=== PATIENT | male | born 1990 | race Caucasian/White ===

== ENCOUNTER 2020-01-08 18:51 | Emergency (ER) | payer BC, OTHER ==
[2020-01-08] MEDS ORDERED: HYDROmorphone 1 MG/ML Syringe IVPUSH STA (19:50)
[2020-01-08] MEDS ORDERED: Ondansetron 4 MG/2 ML SDV IVPUSH ONE (19:50)
--- NOTE | 2020-01-08 19:56 | EDM.PDOC ---
ED HPI GENERAL MEDICAL PROBLEM - General Chief Complaint: Abdominal Pain Stated Complaint: SIDE PAIN Time Seen by Provider: 01/08/20 19:28 Source of Information: Reports: Patient History Limitations: Reports: No Limitations - History of Present Illness INITIAL COMMENTS - FREE TEXT/NARRATIVE: Mr. Liriano is a very pleasant 29-year-old man with no chronic medical issues and no prior surgeries, who now presents to the ED stating that he developed sharp lower abdominal pain yesterday, 01/07/2020. The pain comes and goes, typically lasting about 1.5 minutes, recurring about every 5 minutes. When present, he states that it radiates from his right lower quadrant down to his right groin, then across his lower abdomen to the left. His pain is made worse if he eats or drinks, or if he lies in a prone position. He also reports having loose yellow stools yesterday, that became black today, however, he also acknowledges that he took Pepto-Bismol around 19:00 yesterday evening, which did not help his symptoms. He states that he vomited 3 times yesterday, although has not had any nausea or emesis today. No prior similar symptoms. Other than the symptoms, the patient denies recent fever, chills, cough, dyspnea , chest pain, palpitations, nausea, vomiting, constipation, diarrhea, abdominal pain, urinary symptoms, recent weight gain or weight loss, recent bloody bowel movements or black bowel movements, recent joint aches, headaches, or rashes. Here in the ED, the patient is found to be mildly hypertensive at 158/108, otherwise, he is hemodynamically stable, afebrile, saturating 98% on room air. The patient states that he drove himself here, but that he can get a ride, if needed. He last ate around 16:00 this afternoon. The patient does not have a PCP. He did not receive an influenza vaccine this season, but agreed to receive one here today. Treatments COMPUTER AIDE: Reports: Other (see below) Other Treatments COMPUTER AIDE: pepto bismol Lower Abdominal Pain Score (Numeric/FACES): 6 - Related Data Allergies Allergy/AdvReac Type Severity Reaction Status Date / Time No Known Allergies Allergy Verified 01/08/20 19:08 Home Meds: Home Meds . [No Known Home Meds] 01/08/20 [History] Past Medical History Endocrine/Metabolic History: Reports: Obesity/BMI 30+ Social & Family History - Tobacco Use Tobacco Use Within Last Twelve Months: Vaping (nicotine) Years of Tobacco use: 3 Packs/Tins Daily: 0.5 Month/Year Tobacco Last Used: Quit 2016 - Caffeine Use Caffeine Use: Reports: Energy Drinks - Alcohol Use Days Per Week of Alcohol Use: 7 Number of Drinks Per Day: 2 Total Drinks Per Week: 14 Alcohol Use Frequency: Daily - Recreational Drug Use Recreational Drug Use: Yes Drug Use in Last 12 Months: No Recreational Drug Type: Reports: Marijuana/Hashish (last smoked 2017) - Living Situation & Occupation Living situation: Reports: Single, Other (with friends) Occupation: Employed ([employer]) ED ROS GENERAL - Review of Systems Review Of Systems: Comprehensive ROS is negative, except as noted in HPI. ED EXAM, GI/ABD - Physical Exam Exam: See Below Exam Limited By: No Limitations General Appearance: Alert, WD/WN, No Apparent Distress Eyes: Bilateral: Normal Appearance, EOMI Ears: Normal External Exam, Hearing Grossly Normal Nose: Normal Inspection Throat/Mouth: Normal Inspection, Normal Lips, Normal Voice, No Airway Compromise Head: Atraumatic, Normocephalic Neck: Normal Inspection, Full Range of Motion Respiratory/Chest: No Respiratory Distress, Lungs Clear, Normal Breath Sounds, No Accessory Muscle Use Cardiovascular: Normal Peripheral Pulses, Regular Rate, Rhythm, No Edema, No Gallop, No JVD, No Murmur, No Rub GI/Abdominal Exam: Normal Bowel Sounds, Soft, No Organomegaly, No Distention, No Abnormal Bruit, No Mass, Pelvis Stable, Tender (Almost exclusively to the right lower quadrant, although some tenderness just left of the supra pubis was also identified. Completely nontender elsewhere. Rovsing sign absent. Obturator sign absent. Psoas sign absent. Heel drop sign present. The pain reported increased pain to his right lower quadrant after I palpated his abdomen.) (Male) Exam: Deferred Rectal (Males) Exam: Deferred Back Exam: Normal Inspection, Full Range of Motion. No: CVA Tenderness (L), CVA Tenderness (R) Extremities: Normal Inspection, Normal Range of Motion, No Pedal Edema, Normal Capillary Refill Neurological: Alert, Oriented, Normal Cognition, No Motor/Sensory Deficits Psychiatric: Normal Affect Skin Exam: Warm, Dry, Intact, Normal Color, No Rash Course - Vital Signs Last Recorded V/S: Last Vital Signs Temp 36.2 C 01/08/20 19:18 Pulse 88 01/08/20 19:18 Resp 18 01/08/20 19:18 BP 157/95 H 01/08/20 19:18 Pulse Ox 98 01/08/20 19:18 - Orders/Labs/Meds Orders: Active Orders 24 hr Category Date Time Status Influenza Vaccine Charge [RC] .DISCHARGE Care 01/08/20 19:53 Active Abdomen Pelvis w Cont [CT] Stat Exams 01/08/20 19:50 Taken Labs: Laboratory Tests 01/08/20 01/08/20 01/08/20 Range/Units 20:00 20:08 20:08 WBC 10.88 H (4.23-9.07) K/mm3 RBC 6.37 H (4.63-6.08) M/mm3 Hgb 18.3 H (13.7-17.5) gm/dl Hct 55.1 H (40.1-51.0) % MCV 86.5 (79.0-92.2) fl MCH 28.7 (25.7-32.2) pg MCHC 33.2 (32.2-35.5) g/dl RDW Std Deviation 44.8 H (35.1-43.9) fL Plt Count 318 (163-337) K/mm3 MPV 9.7 (9.4-12.3) fl Neutrophils % (Manual) 76 H (40-60) % Band Neutrophils % 0 (0-10) % Lymphocytes % (Manual) 23 (20-40) % Atypical Lymphs % 0 % Monocytes % (Manual) 1 L (2-10) % Eosinophils % (Manual) 0 L (0.8-7.0) % Basophils % (Manual) 0 L (0.2-1.2) Platelet Estimate Adequate RBC Morph Comment Normal Sodium 140 (136-145) mEq/L Potassium 3.3 L (3.5-5.1) mEq/L Chloride 102 (98-107) mEq/L Carbon Dioxide 27 (21-32) mEq/L Anion Gap 14.3 (5-15) BUN 15 (7-18) mg/dL Creatinine 1.4 H (0.7-1.3) mg/dL Est Cr Clr Drug Dosing 96.44 mL/min Estimated GFR (MDRD) > 60 (>60) mL/min BUN/Creatinine Ratio 10.7 L (14-18) Glucose 87 (74-106) mg/dL Calcium 9.6 (8.5-10.1) mg/dL Total Bilirubin 2.2 H (0.2-1.0) mg/dL AST 67 H (15-37) U/L ALT 154 H (16-63) U/L Alkaline Phosphatase 119 H (46-116) U/L Total Protein 8.8 H (6.4-8.2) g/dl Albumin 4.5 (3.4-5.0) g/dl Globulin 4.3 gm/dL Albumin/Globulin Ratio 1.1 (1-2) Urine Color Dark yellow (Yellow) Urine Appearance Slt cloudy H (Clear) Urine pH 6.0 (5.0-8.0) Ur Specific [place] > or = 1.030 (1.005-1.030) Urine Protein 2+ H (Negative) Urine Glucose (UA) Negative (Negative) Urine Ketones Negative (Negative) Urine Occult Blood Negative (Negative) Urine Nitrite Negative (Negative) Urine Bilirubin 1+ H (Negative) Urine Urobilinogen 0.2 (0.2-1.0) Ur Leukocyte Esterase Negative (Negative) Urine RBC 0-5 (0-5) /hpf Urine WBC 0-5 (0-5) /hpf Ur Squamous Epith Cells 0-5 (0-5) /hpf Urine Bacteria Few (FEW) /hpf Urine Mucus Many H (FEW) /hpf Meds: Medications Discontinued Medications Generic Name Dose Route Start Last Admin Trade Name Freq PRN Reason Stop Dose Admin Diatrizoate Meglum/Diatrizoate Sod 90 ml 01/08/20 20:14 01/08/20 21:46 Gastrografin 37% PO 01/08/20 20:15 90 ml ONETIME ONE Administration Hydromorphone HCl 1 mg 01/08/20 19:50 01/08/20 20:15 Dilaudid IVPUSH 01/08/20 19:51 1 mg ONETIME STA Administration Sodium Chloride 1,000 mls @ 150 mls/hr 01/08/20 20:00 01/08/20 20:13 Normal Saline IV 150 mls/hr ASDIRECTED ROBYN Administration Influenza Virus Vaccine 1 each 01/08/20 19:53 Pharmacy To Dose - Influenza Vaccine IM 01/08/20 19:54 ONETIME ONE Influenza Virus Vaccine 60 mcg 01/08/20 20:00 01/08/20 20:20 Fluzone Quad [id number] Syringe IM 01/08/20 20:01 60 mcg .ONCE ONE Administration Iopamidol 100 ml 01/08/20 20:14 01/08/20 21:46 Isovue-300 (61%) IVPUSH 01/08/20 20:15 100 ml ONETIME ONE Administration Ondansetron HCl 4 mg 01/08/20 19:50 01/08/20 20:13 Zofran IVPUSH 01/08/20 19:51 4 mg ONETIME ONE Administration Sodium Chloride 10 ml 01/08/20 20:14 Saline Flush FLUSH ONETIME PRN Keep Vein Open - Re-Assessments/Exams Free Text/Narrative Re-Assessment/Exam: 01/08/20 19:52 The patient's history and physical exam are most concerning for acute appendicitis. I have therefore ordered blood work, a urinalysis, and a CT scan of the abdomen and pelvis with oral and IV contrast to evaluate. In the meantime, the patient will be given IV Dilaudid, IV Zofran, and IV fluid. 01/08/20 21:42 The patient's CBC is remarkable for a WBC count elevated at 10.88, but with 0% bandemia. His H/H is elevated at 18.3/55.1, with the remainder of his CBC being unremarkable. His CMP is remarkable for a potassium slightly depressed at 3.3, and a Cr at 1.4 with a BUN normal at 15. His TBil is elevated at 2.2. His AST/ALT are elevated at 67/154, and his alkaline phosphatase is mildly elevated at 119, with the remainder of his CMP being unremarkable. His urinalysis is unremarkable. 01/08/20 22:07 CT of the abdomen and pelvis with oral and IV contrast as read by Juan A as: 1. Findings favor acute pancolitis, as detailed above. 2. No bowel obstruction. 3. Other incidental findings as detailed above. Based on the above, the patient will need an outpatient colonoscopy. He can be safely discharged home, but I will refer him to the surgeon. 01/08/20 22:11 Test results and the above plan discussed with the patient. He agreed to follow -up with the surgeon. Departure - Departure Time of Disposition: 22:12 Disposition: Home, Self-Care 01 Condition: Good Clinical Impression: Pancolitis - Discharge Information *PRESCRIPTION DRUG MONITORING PROGRAM REVIEWED*: Not Applicable *COPY OF PRESCRIPTION DRUG MONITORING REPORT IN PATIENT NASRA: Not Applicable Instructions: Ulcerative Colitis, Adult Referrals: PCP,None [Primary Care Provider] - Luis Antonio Flanagan MD [Physician] - Forms: ED Department Discharge Additional Instructions: You were seen in the emergency room for on and off lower abdominal pain, loose stools, and vomiting since 01/07/2020. Work-up in the ER included blood work, a urinalysis, and a CT scan of your abdomen and pelvis with oral and IV contrast. Your blood work was unremarkable, but your CT scan indicated pancolitis = inflammation of your entire colon. This finding is concerning for a condition called ulcerative colitis. We recommend that you follow-up with the Surgeon Dr. Luis Antonio Flanagan at the next available appointment, in order to arrange for a colonoscopy (scope of your colon). In the meantime, stay adequately hydrated. If any other problems, please do not hesitate to return to the ER. Sepsis Event Note - Evaluation Sepsis Screening Result: No Definite Risk - Focused Exam Vital Signs: Vital Signs Temp Pulse Resp BP Pulse Ox 01/08/20 19:18 36.2 C 88 18 157/95 H 98 01/08/20 19:01 36.4 C 99 18 158/108 H 98 Date Exam was Performed: 01/09/20 Time Exam was Performed: 01:31 - My Orders Last 24 Hours: My Active Orders 01/08/20 19:50 Abdomen Pelvis w Cont [CT] Stat 01/08/20 19:53 Influenza Vaccine Charge [RC] .DISCHARGE - Assessment/Plan Last 24 Hours: My Active Orders 01/08/20 19:50 Abdomen Pelvis w Cont [CT] Stat 01/08/20 19:53 Influenza Vaccine Charge [RC] .DISCHARGE
[2020-01-08] MEDS ORDERED: Sodium Chloride 0.9% 1,000 ML IV SCH (20:00)
[2020-01-08] MEDS ORDERED: FLU Vacc QS2019-20(6MOS+)/PF 60 MCG/0.5 ML SYRINGE IM ONE (20:00)
[2020-01-08] MEDS ORDERED: Sodium Chloride 0.9% 10 ML Syringe FLUSH PRN (20:14)
[2020-01-08] MEDS ORDERED: Diatrizoate Meglumine/Diatrizoate Sodium 37% 120 ML Bottle PO ONE (20:14)
[2020-01-08] MEDS ORDERED: Iopamidol 612 MG/ML 100 ML Bottle IVPUSH ONE (20:14)
--- NOTE | 2020-01-09 06:33 | CT ---
CT abdomen and pelvis Technique: Multiple axial sections were obtained from above the dome of the diaphragm inferiorly through the pubic symphysis. Intravenous and oral contrast was utilized. Delayed images were also obtained through the lower abdomen and pelvis. Findings: Visualized lung bases show nothing acute. Liver shows diffuse fatty infiltration. No focal abnormality is appreciated within the liver. Spleen appears within normal limits. Adrenal glands show no nodule. Pancreas is within normal limits. Kidneys show symmetric contrast enhancement without hydronephrosis or mass. Delayed images shows contrast within the collecting systems and ureters on both sides. Small amount of contrast is noted within the bladder. Aorta shows no aneurysm. Gallbladder contains no calcified gallstones. No retroperitoneal adenopathy or mesenteric abnormalities are seen. Appendix is seen which is normal. No pelvic mass or adenopathy is seen. Diverticuli are noted within the sigmoid colon without findings of diverticulitis. Diffuse bowel wall thickening seen within the colon. No bowel dilatation is seen. Bone window settings were reviewed. No acute osseous finding is seen. Impression: 1. Bowel wall thickening within the colon which suggest a nonspecific diffuse colitis. 2. Diverticulosis within the sigmoid colon without diverticulitis. 3. Normal appendix. 4. Fatty infiltration throughout the liver. Diagnostic code #3 This report was dictated in MDT I agree with preliminary report from [facility], finalized on 01/08/20, 11:03 PM Central Time
== END 2020-01-08 22:23 | disposition home or self-care (01) ==
LOC: JD.ED 18:51
DX: K51.00 Ulcerative (chronic) pancolitis without complications (principal); F17.210 Nicotine dependence, cigarettes, uncomplicated; Z23 Encounter for immunization
CPT/HCPCS: 36415; 74177; 80053; 81001; 85007; 85027; 90471; 90686; 96361; 96374; 96375; 99284; J1170; J2405; J7030; Q9963; Q9967; G0008

== ENCOUNTER 2021-07-31 13:45 | Emergency (ER) | payer SELFPAY ==
[2021-07-31] MEDS ORDERED: Loperamide 2 MG Cap PO ONE (15:12)
[2021-07-31] MEDS ORDERED: Ondansetron 4 MG Tab.DIS PO ONE (15:12)
[2021-07-31] MEDS ORDERED: Dicyclomine 10 MG Cap PO ONE (15:21)
[2021-07-31] MEDS ORDERED: Sodium Chloride 0.9% 1,000 ML IV ONE (15:21)
[2021-07-31] MEDS ORDERED: Sodium Chloride 0.9% 10 ML Syringe FLUSH PRN (15:21)
--- NOTE | 2021-07-31 15:46 | EDM.PDOC ---
ED HPI GENERAL MEDICAL PROBLEM - General Chief Complaint: Respiratory Problem Stated Complaint: COVID+ NAUSEA Time Seen by Provider: 07/31/21 15:11 Source of Information: Reports: Patient, RN Notes Reviewed History Limitations: Reports: No Limitations - History of Present Illness INITIAL COMMENTS - FREE TEXT/NARRATIVE: Patient is a 30-year-old male who presents to the ER for his ongoing COVID-19 with associated nausea/vomiting/diarrhea. States he has been sick since last week Sunday. Notes that anytime he tries to eat or drink anything, it does not stay down very long, or when he does eat and is able to stay down, he has pretty good diarrhea. States he is not had any medications at home to help alleviate any of these symptoms. States he has been trying to drink enough fluids but feels dehydrated. Does feel slightly dizzy or lightheaded from sitting to standing. Was not vaccinated for COVID-19, states he was a fairly healthy individual prior to this. Generalized Pain Score (Numeric/FACES): 5 - Related Data Allergies Allergy/AdvReac Type Severity Reaction Status Date / Time No Known Allergies Allergy Verified 07/31/21 14:17 Home Meds: Home Meds Ondansetron [Zofran ODT] 4 mg PO Q8H PRN #15 tab.dis 07/31/21 [Rx] Past Medical History - Past Health History Medical/Surgical History: Denies Medical/Surgical History Endocrine/Metabolic History: Reports: Obesity/BMI 30+ - Infectious Disease History Infectious Disease History: Reports: Novel Coronavirus - Past Surgical History HEENT Surgical History: Reports: Oral Surgery Social & Family History - Tobacco Use Tobacco Use Status *Q: Never Tobacco User Second Hand Smoke Exposure: No - Caffeine Use Caffeine Use: Reports: Energy Drinks - Recreational Drug Use Recreational Drug Use: No - Living Situation & Occupation Living situation: Reports: Single, Other (with friends) Occupation: Employed ([employer]) ED ROS GENERAL - Review of Systems Review Of Systems: Comprehensive ROS is negative, except as noted in HPI. ED EXAM, GENERAL - Physical Exam Exam: See Below Exam Limited By: No Limitations General Appearance: Alert, WD/WN, No Apparent Distress Respiratory/Chest: No Respiratory Distress, Lungs Clear, Normal Breath Sounds, No Accessory Muscle Use, Chest Non-Tender Cardiovascular: Normal Peripheral Pulses, Regular Rate, Rhythm, No Edema Peripheral Pulses: 2+: Radial (L), Radial (R) GI/Abdominal: Normal Bowel Sounds, Soft, Non-Tender, No Organomegaly, No Distention, No Mass Extremities: Normal Inspection, Normal Capillary Refill Neurological: Alert, Oriented, Normal Cognition, No Motor/Sensory Deficits Psychiatric: Normal Affect, Normal Mood Skin Exam: Warm, Dry, Intact, Normal Color, No Rash Course - Vital Signs Last Recorded V/S: Last Vital Signs Temp 96.9 F 07/31/21 14:17 Pulse 99 07/31/21 14:17 Resp 20 07/31/21 14:17 BP 140/95 H 07/31/21 14:17 Pulse Ox 99 07/31/21 14:17 - Orders/Labs/Meds Orders: Active Orders 24 hr Category Date Time Status Peripheral IV Care [RC] . DIRECTED Care 07/31/21 15:21 Ordered Vital Signs [RC] Q15M Care 07/31/21 16:34 Ordered EPINEPHrine [Adrenalin] Med 07/31/21 16:33 Active 0.3 mg IM ASDIRECTED PRN Famotidine [Pepcid] Med 07/31/21 16:33 Active 20 mg IVPUSH ASDIRECTED PRN Sodium Chloride 0.9% [Saline Flush] Med 07/31/21 15:21 Active 10 ml FLUSH ASDIRECTED PRN Sodium Chloride 0.9% [Saline Flush] Med 07/31/21 16:45 Active 30 ml FLUSH ASDIRECTED diphenhydrAMINE [Benadryl] Med 07/31/21 16:33 Active 50 mg IVPUSH ASDIRECTED PRN methylPREDNISolone Sod Succ [Solu-MEDROL] Med 07/31/21 16:33 Active 125 mg IVPUSH ASDIRECTED PRN Peripheral IV Insertion Adult [OM.PC] Routine Oth 07/31/21 15:21 Ordered Medication Orders Diphenhydramine HCl (Diphenhydramine 50 Mg/Ml Sdv) 50 mg IVPUSH ASDIRECTED PRN PRN Reason: hypersensitivity reaction Epinephrine HCl (Epinephrine 1 Mg/Ml Sdv) 0.3 mg IM ASDIRECTED PRN PRN Reason: hypersensitivity reaction Famotidine (Famotidine 20 Mg/2 Ml Sdv) 20 mg IVPUSH ASDIRECTED PRN PRN Reason: hypersensitivity reaction Methylprednisolone Sodium Succinate (Methylprednisolone Sodium Succinate 125 Mg/2 Ml Sdv) 125 mg IVPUSH ASDIRECTED PRN PRN Reason: hypersensitivity reaction Sodium Chloride (Sodium Chloride 0.9% 10 Ml Syringe) 10 ml FLUSH ASDIRECTED PRN PRN Reason: Keep Vein Open Last Admin: 07/31/21 15:36 Dose: 10 ml Documented by: LUCRETIA Sodium Chloride (Sodium Chloride 0.9% 10 Ml Syringe) 30 ml FLUSH ASDIRECTED ROBYN Labs: Laboratory Tests 07/31/21 07/31/21 Range/Units 15:02 15:02 WBC 5.87 (4.23-9.07) K/mm3 RBC 6.64 H (4.63-6.08) M/mm3 Hgb 19.4 H (13.7-17.5) gm/dl Hct 56.5 H (40.1-51.0) % MCV 85.1 (79.0-92.2) fl MCH 29.2 (25.7-32.2) pg MCHC 34.3 (32.2-35.5) g/dl RDW Std Deviation 42.6 (35.1-43.9) fL Plt Count 166 D (163-337) K/mm3 MPV 11.0 (9.4-12.3) fl Neut % (Auto) 69.0 H (34.0-67.9) % Lymph % (Auto) 17.9 L (21.8-53.1) % [place] % (Auto) 12.4 H (5.3-12.2) % Eos % (Auto) 0 L (0.8-7.0) Baso % (Auto) 0.5 (0.1-1.2) % Neut # (Auto) 4.05 (1.78-5.38) K/mm3 Lymph # (Auto) 1.05 L (1.32-3.57) K/mm3 [place] # (Auto) 0.73 (0.30-0.82) K/mm3 Eos # (Auto) 0.00 L (0.04-0.54) K/mm3 Baso # (Auto) 0.03 (0.01-0.08) K/mm3 Manual Slide Review Sodium 137 (136-145) mEq/L Potassium 3.6 (3.5-5.1) mEq/L Chloride 99 (98-107) mEq/L Carbon Dioxide 26 (21-32) mEq/L Anion Gap 15.6 H (5-15) BUN 14 (7-18) mg/dL Creatinine 1.3 (0.7-1.3) mg/dL Est Cr Clr Drug Dosing 102.94 mL/min Estimated GFR (MDRD) > 60 (>60) mL/min BUN/Creatinine Ratio 10.8 L (14-18) Glucose 97 (70-99) mg/dL Calcium 9.2 (8.5-10.1) mg/dL Magnesium 2.4 (1.8-2.4) mg/dL Total Bilirubin 1.5 H (0.2-1.0) mg/dL AST 119 H (15-37) U/L ALT 160 H (16-63) U/L Alkaline Phosphatase 94 (46-116) U/L Total Protein 8.7 H (6.4-8.2) g/dl Albumin 4.1 (3.4-5.0) g/dl Globulin 4.6 gm/dL Albumin/Globulin Ratio 0.9 L (1-2) Meds: Medications Generic Name Dose Route Start Last Admin Trade Name Freq PRN Reason Stop Dose Admin Diphenhydramine HCl 50 mg 07/31/21 16:33 Diphenhydramine 50 Mg/Ml Sdv IVPUSH ASDIRECTED PRN hypersensitivity reaction Epinephrine HCl 0.3 mg 07/31/21 16:33 Epinephrine 1 Mg/Ml Sdv IM ASDIRECTED PRN hypersensitivity reaction Famotidine 20 mg 07/31/21 16:33 Famotidine 20 Mg/2 Ml Sdv IVPUSH ASDIRECTED PRN hypersensitivity reaction Methylprednisolone Sodium Succinate 125 mg 07/31/21 16:33 Methylprednisolone Sodium Succinate 125 Mg/2 Ml Sdv IVPUSH ASDIRECTED PRN hypersensitivity reaction Sodium Chloride 10 ml 07/31/21 15:21 07/31/21 15:36 Sodium Chloride 0.9% 10 Ml Syringe FLUSH 10 ml ASDIRECTED PRN Administration Keep Vein Open Sodium Chloride 30 ml 07/31/21 16:45 Sodium Chloride 0.9% 10 Ml Syringe FLUSH ASDIRECTED ROBYN Discontinued Medications Generic Name Dose Route Start Last Admin Trade Name Freq PRN Reason Stop Dose Admin Dicyclomine HCl 20 mg 07/31/21 15:21 07/31/21 15:36 Dicyclomine 10 Mg Cap PO 07/31/21 15:22 20 mg ONETIME ONE Administration Sodium Chloride 1,000 mls @ 999 mls/hr 07/31/21 15:21 07/31/21 15:37 Normal Saline IV 07/31/21 16:21 999 mls/hr ONETIME ONE Administration CASIRIVIMAB/IMDEVIMAB 10 ml/ 110 mls @ 220 mls/hr 07/31/21 16:33 07/31/21 17:15 Sodium Chloride IV 07/31/21 17:02 220 mls/hr ONETIME ONE Administration Loperamide HCl 4 mg 07/31/21 15:12 07/31/21 15:36 Loperamide 2 Mg Cap PO 07/31/21 15:13 4 mg ONETIME ONE Administration Ondansetron HCl 4 mg 07/31/21 15:12 07/31/21 15:36 Ondansetron 4 Mg Tab.Dis PO 07/31/21 15:13 4 mg ONETIME ONE Administration - Re-Assessments/Exams Free Text/Narrative Re-Assessment/Exam: 07/31/21 15:35 Patient presents to the ER for his ongoing COVID-19 symptoms. We will go ahead and give him some fluids, Zofran, Bentyl, and Imodium for symptomatic management. Chest x-ray was taken at the time of triage, and there is concern for viral pneumonia due to Covid. 07/31/21 16:23 Labs have resulted for the most part everything is essentially unremarkable he is not too dehydrated. Chest x-ray has been read, findings suspicious for moderate bilateral Covid pneumonia. 07/31/21 16:34 Patient would be a candidate for monoclonal antibody therapy. I spoke with the patient to provide information about monoclonal antibody treatment. I offered them the "Patient and caregiver EUA monoclonal antibody fact sheet" to read and review. I stated that the drug has been approved by an emergency use authorization (EUA) process and has not been fully FDA reviewed or approved. The patient meets the EUA requirements. I discussed there are other potential treatment options that are currently not FDA approved to treat COVID-19. I did offer an opportunity to ask questions and all questions were answered. The patient voiced understanding and agreed to proceed with the treatment. Departure - Departure Time of Disposition: 18:00 Disposition: Home, Self-Care 01 Condition: Good Clinical Impression: COVID-19 - Discharge Information *PRESCRIPTION DRUG MONITORING PROGRAM REVIEWED*: No *COPY OF PRESCRIPTION DRUG MONITORING REPORT IN PATIENT NASRA: No Prescriptions: Ondansetron [Zofran ODT] 4 mg PO Q8H PRN #15 tab.dis PRN Reason: Nausea Instructions: 10 Things You Can Do to Manage Your COVID-19 Symptoms at Home - [facility] (04/22/2021) Referrals: PCP,None [Primary Care Provider] - Forms: ED Department Discharge Additional Instructions: You were seen in the ER today for ongoing COVID-19 and GI symptoms. Your chest x-ray showed moderate signs of viral pneumonia;typical for COVID-19 at this time. You were given IV monoclonal antibody therapy at today's visit, this medication is thought to work by making you a little less sick, and helps to decrease the length of time that you are sick. Please try to increase your oral fluid intake, and eat multiple small meals throughout the day, to keep yourself healthy. You need to keep yourself nourished in order to fight off this disease. You can try a liquid diet like gatorade/powerade as well to get your electrolytes. You were given a prescription for Zofran, you can take 1 tablet dissolvable under your tongue every 8 hours as needed for ongoing nausea management. This medication was electronically sent to the [place] pharmacy located in the [facility] grocery store. Please call the pharmacy tomorrow and let them know that you have COVID-19, so if you have to pick your medications up that they can come up with a plan on how to get the meds to you. You may take 500 mg Tylenol every hours 6 hours for pain/fever relief. Do not exceed 4000 mg Tylenol in a 24-hour time span. However, running a fever is your body's natural response to illness, and it allows the body to develop antibodies to disease, we are recommending trying to limit the use of Tylenol as much as possible to allow your body's natural immune response. Recommend you obtain a pulse oximeter and monitor your oxygen levels at home, you should place the monitor on your finger, and sit in a calm, quiet position for a few minutes and then record the number that is on the screen. If this consistently below 90% on room air without movement, this would be cause for concern to come back to the hospital for further management of your COVID-19 disease. Please follow all guidance set forth from [facility], regarding isolation purposes for your disease process. General isolation times are 10 days from when you started being symptomatic. Sepsis Event Note (ED) - Focused Exam Vital Signs: Vital Signs Temp Pulse Resp BP Pulse Ox 07/31/21 14:17 96.9 F 99 20 140/95 H 99 - My Orders Last 24 Hours: My Active Orders 07/31/21 15:21 Peripheral IV Care [RC] . DIRECTED Sodium Chloride 0.9% [Saline Flush] 10 ml FLUSH ASDIRECTED PRN Peripheral IV Insertion Adult [OM.PC] Routine 07/31/21 16:33 EPINEPHrine [Adrenalin] 0.3 mg IM ASDIRECTED PRN Famotidine [Pepcid] 20 mg IVPUSH ASDIRECTED PRN diphenhydrAMINE [Benadryl] 50 mg IVPUSH ASDIRECTED PRN methylPREDNISolone Sod Succ [Solu-MEDROL] 125 mg IVPUSH ASDIRECTED PRN 07/31/21 16:34 Vital Signs [RC] Q15M 07/31/21 16:45 Sodium Chloride 0.9% [Saline Flush] 30 ml FLUSH ASDIRECTED - Assessment/Plan Last 24 Hours: My Active Orders 07/31/21 15:21 Peripheral IV Care [RC] . DIRECTED Sodium Chloride 0.9% [Saline Flush] 10 ml FLUSH ASDIRECTED PRN Peripheral IV Insertion Adult [OM.PC] Routine 07/31/21 16:33 EPINEPHrine [Adrenalin] 0.3 mg IM ASDIRECTED PRN Famotidine [Pepcid] 20 mg IVPUSH ASDIRECTED PRN diphenhydrAMINE [Benadryl] 50 mg IVPUSH ASDIRECTED PRN methylPREDNISolone Sod Succ [Solu-MEDROL] 125 mg IVPUSH ASDIRECTED PRN 07/31/21 16:34 Vital Signs [RC] Q15M 07/31/21 16:45 Sodium Chloride 0.9% [Saline Flush] 30 ml FLUSH ASDIRECTED
--- NOTE | 2021-07-31 16:16 | CR ---
Chest: Portable view of the chest was obtained. Comparison: No prior chest imaging is available. Mild patchy areas of increased density are seen within both sides of the chest. Heart size and mediastinum are normal. Bony structures show nothing acute. Impression: 1. Findings suspicious for moderate bilateral COVID pneumonia. Diagnostic code #3
[2021-07-31] MEDS ORDERED: diphenhydrAMINE 50 MG/ML SDV IVPUSH PRN (16:33)
[2021-07-31] MEDS ORDERED: EPINEPHrine 1 MG/ML SDV IM PRN (16:33)
[2021-07-31] MEDS ORDERED: methylPREDNISolone Sodium Succinate 125 MG/2 ML SDV IVPUSH PRN (16:33)
[2021-07-31] MEDS ORDERED: Famotidine 20 MG/2 ML SDV IVPUSH PRN (16:33)
[2021-07-31] MEDS ORDERED: Sodium Chloride 0.9% 10 ML Syringe FLUSH SCH (16:45)
== END 2021-07-31 19:00 | disposition home or self-care (01) ==
LOC: JD.ED 13:45
DX: U07.1 COVID-19 (principal); E66.9 Obesity, unspecified; Z68.32 Body mass index [BMI] 32.0-32.9, adult; Z86.16 Personal history of COVID-19
CPT/HCPCS: 36415; 71045; 80053; 83735; 85025; 99284; A9270; J7030; M0243; Q0243

== ENCOUNTER 2022-04-21 11:46 | Emergency (ER) | payer BC ==
[2022-04-21] MEDS ORDERED: Ondansetron 4 MG/2 ML SDV IVPUSH ONE (12:06)
[2022-04-21] MEDS ORDERED: HYDROmorphone 1 MG/ML Syringe IVPUSH STA (12:06)
[2022-04-21] MEDS ORDERED: Sodium Chloride 0.9% 1,000 ML IV SCH (12:15)
[2022-04-21] MEDS ORDERED: Sodium Chloride 0.9% 10 ML Syringe FLUSH ONE (12:27)
[2022-04-21] MEDS ORDERED: Iopamidol 612 MG/ML 50 ML SDV IVPUSH ONE (12:27)
[2022-04-21] MEDS ORDERED: Iopamidol 612 MG/ML 100 ML Bottle IVPUSH ONE (12:27)
[2022-04-21] MEDS: Sodium Chloride 0.9% 10 ML Syringe FLUSH PRN ×2 (13:05→13:20)
[2022-04-21 13:42] LABS: ESTIMATED GFR 118 mL/min (>60)
[2022-04-21] MEDS ORDERED: Alum Hydrox/Mag Hydrox/Simeth 30 ML, Lidocaine 2% 15 ML PO ONE ×2 (14:02)
== END 2022-04-21 15:15 | disposition home or self-care (01) ==
LOC: JD.ED 11:46
DX: K29.20 Alcoholic gastritis without bleeding (principal); E66.9 Obesity, unspecified; Z68.30 Body mass index [BMI] 30.0-30.9, adult; Z86.16 Personal history of COVID-19
CPT/HCPCS: 36415; 74177; 80053; 81001; 82977; 83690; 85025; 86140; 96361; 96374; 96375; 99284; A9270; J1170; J2405; J3490; J7030; Q9967

== ENCOUNTER 2025-01-23 17:15 | Emergency (ER) | payer BC, OTHER ==
[2025-01-23] MEDS ORDERED: Sodium Chloride 0.9% 10 ML Syringe FLUSH PRN (18:00)
[2025-01-23 18:23] LABS: BASOPHILS ABSOLUTE AUTO 0.1 K/mm3 (0.0-0.2); BASOPHILS PERCENT AUTO 0.8 % (0.0-1.0); EOSINOPHILS ABSOLUTE AUTO 0.1 K/mm3 (0.0-0.4); EOSINOPHILS PERCENT AUTO 0.8 % (0.0-6.0); HEMATOCRIT 50.8 % (42.0-52.0); HEMOGLOBIN 17.5 gm/dl (14.0-18.0); IMMATURE GRAN ABSOLUTE AUTO 0.04 K/mm3 (0.00-0.05); IMMATURE GRAN PERCENT AUTO 0.3 % (0.0-0.4); LYMPHOCYTES ABSOLUTE AUTO 2.7 K/mm3 (1.0-4.8); LYMPHOCYTES PERCENT AUTO 20.7 % (24.0-44.0); MEAN CORPUSCULAR HGB CONC 34.4 g/dl (32.0-36.0); MEAN CORPUSCULAR VOLUME 87.1 fl (83.0-99.0); MEAN PLATELET VOLUME 9.7 fl (9.4-12.4); MONOCYTES ABSOLUTE AUTO 0.7 K/mm3 (0.0-0.8); MONOCYTES PERCENT AUTO 5.1 % (0.0-8.0); NEUTROPHILS ABSOLUTE AUTO 9.4 K/mm3 (1.8-7.7); NEUTROPHILS PERCENT AUTO 72.3 % (41.0-71.0); PLATELET COUNT,PLT 341 K/mm3 (150-400); RED BLOOD CELL COUNT 5.83 M/mm3 (4.52-5.90); WHITE BLOOD CELL COUNT,WBC 13.04 K/mm3 (3.9-11.3)
[2025-01-23 18:27] LABS: A/G RATIO 0.9 (1-2); ALBUMIN 3.8 g/dl (3.4-5.0); ANION GAP 17.6 (5-15); BILIRUBIN TOTAL 0.8 mg/dL (0.2-1.0); BUN/CREATININE RATIO 8.3 (14-18); CALCIUM 9.7 mg/dL (8.5-10.1); CREATININE 1.2 mg/dL (0.7-1.3); EST CRCL DRUG DOSING (CG) 107.5 mL/min; PROTEIN TOTAL,TP 8.2 g/dl (6.4-8.2)
[2025-01-23 18:28] LABS: POTASSIUM,K 3.6 mEq/L (3.5-5.1)
[2025-01-23] MEDS: HYDROmorphone 1 MG/ML Syringe IVPUSH ONE (18:31)
[2025-01-23] MEDS: Sodium Chloride 0.9% 1,000 ML IV STA (18:31)
[2025-01-23] MEDS: Ondansetron 4 MG/2 ML SDV IVPUSH ONE (18:31)
[2025-01-23] MEDS: Sodium Chloride 0.9% 10 ML Syringe FLUSH ONE (18:57)
[2025-01-23] MEDS: Iopamidol 612 MG/ML 100 ML Bottle IVPUSH ONE (18:58)
[2025-01-23] MEDS: HYDROmorphone 0.5 MG/0.5 ML Syringe IVPUSH ONE (19:37)
[2025-01-23] MEDS: Famotidine 20 MG/2 ML SDV IVPUSH ONE (19:37)
== END 2025-01-23 19:50 | disposition home or self-care (01) ==
LOC: JD.ED 17:15
DX: R11.2 Nausea with vomiting, unspecified (principal); R19.7 Diarrhea, unspecified; R10.11 Right upper quadrant pain; I10 Essential (primary) hypertension; K21.9 Gastro-esophageal reflux disease without esophagitis; E66.9 Obesity, unspecified; Z79.899 Other long term (current) drug therapy; Z68.34 Body mass index [BMI] 34.0-34.9, adult
CPT/HCPCS: 36415; 74177; 80053; 83690; 85025; 96361; 96374; 96375; 96376; 99284; J1171; J2405; J7030; Q9967

== ENCOUNTER 2025-03-03 14:07 | Emergency (ER) | payer SELFPAY ==
[2025-03-03 14:50] LABS: BASOPHILS ABSOLUTE AUTO 0.1 K/mm3 (0.0-0.2); BASOPHILS PERCENT AUTO 0.5 % (0.0-1.0); HEMATOCRIT 51.4 % (42.0-52.0); HEMOGLOBIN 17.5 gm/dl (14.0-18.0); IMMATURE GRAN ABSOLUTE AUTO 0.09 K/mm3 (0.00-0.05); IMMATURE GRAN PERCENT AUTO 0.5 % (0.0-0.4); LYMPHOCYTES ABSOLUTE AUTO 1.7 K/mm3 (1.0-4.8); LYMPHOCYTES PERCENT AUTO 9.7 % (24.0-44.0); MEAN CORPUSCULAR HEMOGLOBIN 30.3 pg (28.0-32.0); MEAN CORPUSCULAR VOLUME 89.1 fl (83.0-99.0); MEAN PLATELET VOLUME 9.5 fl (9.4-12.4); MONOCYTES ABSOLUTE AUTO 0.5 K/mm3 (0.0-0.8); MONOCYTES PERCENT AUTO 2.9 % (0.0-8.0); NEUTROPHILS ABSOLUTE AUTO 14.9 K/mm3 (1.8-7.7); NEUTROPHILS PERCENT AUTO 86.4 % (41.0-71.0); PLATELET COUNT,PLT 424 K/mm3 (150-400); RED BLOOD CELL COUNT 5.77 M/mm3 (4.52-5.90)
[2025-03-03] MEDS: Sodium Chloride 0.9% 1,000 ML IV STA (14:56)
[2025-03-03] MEDS: Ondansetron 4 MG/2 ML SDV IVPUSH ONE (14:57)
[2025-03-03] MEDS: Famotidine 20 MG/2 ML SDV IVPUSH ONE (14:58)
[2025-03-03] MEDS: Sodium Chloride 0.9% 10 ML Syringe FLUSH PRN (14:59)
[2025-03-03 15:12] LABS: A/G RATIO 0.9 (1-2); ALANINE AMINOTRANSFERASE,ALT 47 U/L (16-63); ALBUMIN 4.3 g/dl (3.4-5.0); ALKALINE PHOSPHATASE 98 U/L (46-116); ANION GAP 17.2 (5-15); ASPARTATE AMNIOTRANSFERASE,AST 34 U/L (15-37); BILIRUBIN TOTAL 1.5 mg/dL (0.2-1.0); BLOOD UREA NITROGEN,BUN 15 mg/dL (7-18); BUN/CREATININE RATIO 11.5 (14-18); CALCIUM 10.1 mg/dL (8.5-10.1); CARBON DIOXIDE,CO2 25 mEq/L (21-32); CHLORIDE,CL 103 mEq/L (98-107); CREATININE 1.3 mg/dL (0.7-1.3); ESTIMATED GFR 74 mL/min (>60); GLUCOSE RANDOM 131 mg/dL (70-99); LIPASE 21 U/L (16-77); POTASSIUM,K 3.2 mEq/L (3.5-5.1); PROTEIN TOTAL,TP 8.9 g/dl (6.4-8.2); SODIUM,NA 142 mEq/L (136-145)
== END 2025-03-03 16:27 | disposition home or self-care (01) ==
LOC: JD.ED 14:07
DX: K29.20 Alcoholic gastritis without bleeding (principal); R11.2 Nausea with vomiting, unspecified; I10 Essential (primary) hypertension; Z86.16 Personal history of COVID-19; Z79.899 Other long term (current) drug therapy
CPT/HCPCS: 36415; 80053; 83690; 85025; 96361; 96374; 96375; 99284; J2405; J7030